=== PATIENT | male | born 1960 | race Caucasian/White ===

== ENCOUNTER 2016-11-04 12:41 | Emergency (ER) | payer SELFPAY ==
--- NOTE | ~2016-11-04 | ER ---
PATIENT'S NAME: MERVIN SEPULVEDA [facility] AGE: 56 Y [address] ROOM: [place] [address] LOCATION: ED ADMIT DATE: 11/04/2016 ER/Outpatient Report DISCHARGE DATE: 11/04/2016 FAMILY PHYSICIAN: PHYSICIAN, NO ATTENDING PHYSICIAN: Jacquie Vizcaino Time of Arrival: 1241. Time Seen: 1305. IDENTIFICATION: 56-year-old male. CHIEF COMPLAINT: Short of breath and cough. HISTORY OF PRESENT ILLNESS: The patient has a nonproductive cough, shortness of breath. No chest pain for the last 10 days. He has had fever at home, just low-grade he said. No ill contacts. PAST MEDICAL HISTORY: ALLERGIES: NO KNOWN DRUG ALLERGIES. CURRENT MEDICATIONS: 1. ProAir two puffs every 4 hours as needed. 2. Carvedilol 3.125 mg b.i.d. 3. Aspirin 81 mg daily. 4. Lasix 40 mg daily. 5. KCl 20 mEq daily. 6. Lisinopril 5 mg daily. 7. Albuterol nebulizer q.a.m. MEDICAL PROBLEMS: COPD, coronary artery disease, ischemic cardiomyopathy, mitral regurgitation, chronic alcohol abuse. PRIOR SURGERIES: Left upper lobectomy several years ago, bilateral blepharoplasty, and most recently a four-vessel CABG one year ago. SOCIAL HISTORY: Tobacco use, none now. He quit 16 years ago. Alcohol; 2 glasses, Saturday and Saturday. Drug use, denies. The patient just underwent a divorce. He is a PATIENT'S NAME: DERICKMERVIN AGUILA [facility] AGE: 56 Y [address] ROOM: [place] [address] LOCATION: [facility] ADMIT DATE: 11/04/2016 ER/Outpatient Report DISCHARGE DATE: 11/04/2016 FAMILY PHYSICIAN: PHYSICIAN, NO ATTENDING PHYSICIAN: Jacquie Vizcaino A [employer] dedicated truck driver. Does not drive more than 3.5 hours at a time. FAMILY HISTORY: Colon cancer in father. Coronary artery disease in mother. REVIEW OF SYSTEMS: All systems reviewed and negative other than what is noted in the HPI. PHYSICAL EXAMINATION: VITAL SIGNS: Weight 103.6 kg. Blood pressure 114/82, pulse 113, respirations 22, temperature 100.3, sats 94% on room air. GENERAL: A 56-year-old male, in no acute distress. HEENT: Head: Normocephalic, atraumatic. Ears: TMs translucent to both ears. Nose: Mucosa pink, no lesions. Mouth: No lesions. Pharynx benign. NECK: Supple. No lymphadenopathy. LUNGS: Clear to auscultation. HEART: Sinus tachycardia. No murmur, rub, or gallop. ABDOMEN: Bowel sounds present. Soft, nondistended. No hepatosplenomegaly. No palpable masses. Nontender. SKIN: [place], warm, and dry. No lesions or rashes noted. NEUROLOGIC: No focal deficit. EXTREMITIES: No lower extremity edema. No calf tenderness. LABORATORY DATA: EKG; sinus tachycardia at 111 beats per minute. No acute ST elevation or depression. Right bundle branch block, nonspecific ST-T wave changes. Frequent PACs. No significant change other than rate when compared to prior EKG dated October 05, 2015. UA; specific gravity 1.010, pH 5, trace of glucose otherwise negative. D-dimer 0.50, hemoglobin 14.4, hematocrit 42.6, platelets 215, white count 10.4 with a normal differential. INR 1.0, lactate 1.2, procalcitonin less than 0.05. ProBNP 339. No previous pro-BNP for comparison. BNP also not available for comparison. Influenza A and B negative. Sodium 134, potassium 4.2, chloride 99, CO2 of 26, BUN 10, creatinine 0.9, blood sugar 195, albumin low at 3.3, globulin 4.5, magnesium 2.0, CPK 124, CK-MB 2.3. Troponin I less than 0.040. Hemoglobin A1c 8.0. One-view chest x-ray; cardiomegaly, increased pulmonary vascularity, hazy right basilar infiltrate, pending Radiology over-read. IMPRESSION: 1. Chronic obstructive pulmonary disease exacerbation. 2. Pneumonia. 3. Congestive heart failure. 4. Diabetes mellitus, new onset. PATIENT'S NAME: MERVIN SEPULVEDA [facility] AGE: 56 Y [address] ROOM: [place] [address] LOCATION: ED ADMIT DATE: 11/04/2016 ER/Outpatient Report DISCHARGE DATE: 11/04/2016 FAMILY PHYSICIAN: PHYSICIAN, NO ATTENDING PHYSICIAN: Jacquie Vizcaino PLAN: Z-Fausto as directed. Lasix 40 mg daily. Solu-Medrol 60 mg IV, then prednisone 20 mg b.i.d. Rocephin 1 g given here and then the Z-Fausto as directed. Follow up with primary care physician in 1-2 days. Follow up sooner if any problems or concerns. The patient does understand and agree, and all questions have been answered. He was given 40 mg of IV Lasix here, 60 mg of IV Solu-Medrol, and 1 g of IV Rocephin. The patient's discharge temp was 99.8. The patient's discharge blood pressure 108/71, heart rate 84-100. MD DEBORA PEARSON/harvey /[id number] d: 11/04/[id number] t: 11/06/16 0922, OUTPATIENT REPORT
[~2016-11-04 12:41] MED LIST: ALBUTEROL2.5 MG/31 INH; ASPIRIN LO-DOSE81 MG PO; ATIVAN 0.5MG0.5 MG PO; COLACE100 MG PO; CORDARONE,PACE200 MG PO; COREG 3.1253.125 MG PO; K-TAB ER20 MEQ PO; LASIX20 MG PO; LIPITOR40 MG PO; MUCINEX1200 MG PO; NORCO 5-325 MG1 TAB PO; PRINIVIL (ZESTRI5 MG PO; PROAIR RESPICL90 MCG INH; SPIRIVA HANDIHA1 KIT INH; SPIRIVA18 MCG INH; SYMBICORT 16010.2 GM INH
[2016-11-04 13:23] LABS: BASOPHIL % 0.4 %; EOSINOPHIL # 0.2 K/uL (0.0-0.5); HEMATOCRIT 42.6 % (37.0-53.0); HEMOGLOBIN 14.4 g/dL (12.0-17.0); IMMATURE GRANULOCYTE # 0.1 K/uL (0.0-0.3); IMMATURE GRANULOCYTE % 0.6 %; LYMPHOCYTE # 0.8 K/uL (0.8-4.0); LYMPHOCYTE % 7.8 %; MCH 28.6 pg (27.0-34.0); MCHC 33.8 gm/dL (32.0-36.5); MCV 84.5 fl (83.0-98.0); MONOCYTE # 1.1 K/uL (0.0-1.0); MONOCYTE % 10.8 %; NEUTROPHIL # (ANC) 8.2 K/uL (1.4-9.0); NEUTROPHIL % 78.4 %; NRBC % 0 /100WBC (0-0.00); PLATELET COUNT 215 K/uL (150-450); RBC 5.04 M/uL (4.00-6.00); RDW-CV 13.3 % (11.9-14.6); WBC 10.4 K/uL (4.0-11.0)
[2016-11-04 13:32] LABS: PROTIME 10.6 SECONDS (9.6-11.1); PTT 32 SECONDS (25-32)
[2016-11-04 13:42] LABS: ALBUMIN 3.3 gm/dL (3.5-5.0); ALK PHOS 85 IU/L (33-138); ALT 22 IU/L (12-78); ANION GAP 13.2 (10.0-19.0); AST 18 IU/L (10-40); BLOOD UREA NITROGEN 10 mg/dL (6-24); CHLORIDE 99 mMol/L (96-110); CO2 26 mMol/L (22-32); CPK 124 IU/L (35-332); CREATININE 0.9 mg/dL (0.6-1.3); ESTIMATED GFR (MDRD EQUATION) > 60; POTASSIUM 4.2 mMol/L (3.7-5.1); SODIUM 134 mMol/L (135-145); TOTAL BILIRUBIN 0.7 mg/dL (0.0-1.5); TOTAL PROTEIN 7.8 g/dL (6.0-8.4)
[2016-11-04 14:26] LABS: BILIRUBIN URINE NEGATIVE (NEGATIVE); BLOOD URINE NEGATIVE /UL (NEGATIVE); GLUCOSE URINE 50 mg/dL (NEGATIVE); KETONE URINE NEGATIVE (NEGATIVE); LEUKOCYTES URINE NEGATIVE /UL (NEGATIVE); NITRITE URINE NEGATIVE (NEGATIVE); PROTEIN URINE NEGATIVE (NEGATIVE); UROBILINOGEN URINE NORMAL (NORMAL)
[2016-11-04 14:32] LABS: COLOR URINE STRAW (YELLOW); TURBIDITY URINE CLEAR (CLEAR)
== END 2016-11-04 15:10 | disposition disaster alternative care site (69) ==
LOC: GMED 12:41
PROVIDERS: Family Medicine
DX: J45.901 Unspecified asthma with (acute) exacerbation (principal); J18.9 Pneumonia, unspecified organism; I50.9 Heart failure, unspecified; E11.9 Type 2 diabetes mellitus without complications; Z79.82 Long term (current) use of aspirin; Z79.899 Other long term (current) drug therapy
CPT/HCPCS: J0696; J1940; J2930